=== PATIENT | female | born 1985 | race Caucasian/White ===

== ENCOUNTER 2023-01-29 22:00 | Emergency (ER) | payer SELFPAY ==
[~2023-01-29] VITALS: Ht 157.5 cm; Wt 69.1 kg
[2023-01-30] MEDS ORDERED: KETOROLAC TROMETHAMINE 60 MG/2 ML VIAL IM ONE (01:15)
[2023-01-30] MEDS ORDERED: BACLOFEN 10 MG TABLET PO ONE (01:15)
[2023-01-30] MEDS ORDERED: ACETAMINOPHEN/CODEINE 300-30 MG TABLET PO ONE (01:15)
[2023-01-30 03:00] VITALS: BP 127/83
[2023-01-30] MEDS ORDERED: PredniSONE 20 MG TABLET PO ONE (03:45)
[2023-01-30] MEDS ORDERED: DiphenhydrAMINE HCL 50 MG/ML VIAL IM ONE (03:45)
[2023-01-30] MEDS ORDERED: ACET-66 PO (04:10)
[2023-01-30] MEDS ORDERED: METH-659 PO (04:10)
[2023-01-30] MEDS ORDERED: DIPH50CA37 PO (04:15)
== END 2023-01-30 04:38 | disposition home or self-care (01) ==
LOC: EMS 22:05
DX: S33.5XXA Sprain of ligaments of lumbar spine, initial encounter (principal); Z88.6 Allergy status to analgesic agent; Z79.1 Long term (current) use of non-steroidal anti-inflammatories (NSAID); V99.XXXA Unspecified transport accident, initial encounter; Y93.89 Activity, other specified; Y92.89 Other specified places as the place of occurrence of the external cause; Y99.8 Other external cause status
CPT/HCPCS: 99284; 81025; 71045; 72070; 72100; 96372; J1200; J1885; J7512